=== PATIENT | female | born 1955 | race Caucasian/White ===

== ENCOUNTER 2020-01-30 00:10 | Observation (INO) | payer MEDICARE ==
[2020-01-30] MEDS ORDERED: diltiaZEM INJ 5 MG/ML VIAL IVP STA ×2 (00:32→00:47)
[2020-01-30 00:39] LABS: BASOPHILS % (AUTO) 0.3 %; EOSINOPHILS # (AUTO) 0.3 10^3/uL (0.0-0.7); EOSINOPHILS % (AUTO) 4.5 %; HGB - HEMOGLOBIN 13.3 g/dL (12.0-16.0); LYMPHOCYTES # (AUTO) 3.3 10^3/uL (1.5-3.5); LYMPHOCYTES % (AUTO) 51.5 %; MEAN CORPUSCULAR HEMOGLOBIN 31.4 pg (27.0-31.0); MONOCYTES # (AUTO) 0.5 10^3/uL (0.0-1.0); MONOCYTES % (AUTO) 8.1 %; NEUTROPHILS # (AUTO) 2.3 10^3/uL (1.5-6.6); NEUTROPHILS % (AUTO) 35.3 %; PLT - PLATELET COUNT 170 10^3/uL (130-450); RED BLOOD COUNT 4.24 10^6/uL (4.20-5.40); RED CELL DISTRIBUTION WIDTH 12.4 % (12.0-15.0); WHITE BLOOD COUNT 6.4 x10^3/uL (4.8-10.8)
--- NOTE | 2020-01-30 00:49 | ED Physician Documentation ---
History of Present Illness - Stated complaint Stated Complaint: CP - Chief complaint Chief Complaint: Cardiac - History obtained from History obtained from: Patient - History of Present Illness Timing: Today - Additonal information Additional information: 64 y/o female with a prior history of bronchitis and asthma has developed symptoms of palpitations that are short lived but have become more frequent since an illness in March that her entire team in [place] had. One of the group was eventually diagnosed with COVID and the patient feels that since that time she has had more problems with episodes of palpitations and she has been in to see Lakesha Curry and has had monitoring by AMBERLY. The patient indicates that she has been diagnosed with PACs but she has not been diagnosed with atrial fibrillation. She does not have the results of for ZIO. Today the patient was in [place] sitting up for an art show and she was working fairly hard she was feeling well all [place] [employer] [place] she began to feel the palpitations when she arrived home she continued to feel palpitations and she has now come to the emergency department. In route to the hospital with these palpitations she began to have some chest pressure. This has subsequently resolved.She indicates that she has not otherwise been ill recently. Review of Systems Constitutional: denies: Fever, Myalgias Eyes: denies: Decreased vision Ears: denies: Ear pain Nose: denies: Rhinorrhea / runny nose, Congestion Throat: denies: Sore throat Cardiac: reports: Chest pain / pressure, Palpitations. denies: Pedal edema, Calf pain Respiratory: denies: Dyspnea, Cough, Wheezing GI: denies: Abdominal Pain, Nausea, Vomiting : denies: Dysuria, Frequency PD PAST MEDICAL HISTORY - Allergies Allergies/Adverse Reactions: Allergies Allergy/AdvReac Type Severity Reaction Status Date / Time ibuprofen Allergy Hives Verified 01/30/20 00:42 lidocaine Allergy Hives Verified 01/30/20 00:42 PD ED PE NORMAL - Vitals Vital signs reviewed: Yes (tachy and hypertensive ) - General General: Alert and oriented X 3, No acute distress, Well developed/nourished - HEENT HEENT: Atraumatic, PERRL, EOMI - Neck Neck: Supple, no meningeal sign, No bony TTP - Cardiac Cardiac: No murmur, Other (rapid irregular rate ) - Respiratory Respiratory: No respiratory distress, Clear bilaterally - Abdomen Abdomen: Normal bowel sounds, Soft, Non tender, Non distended, No organomegaly - Back Back: No CVA TTP, No spinal TTP - Derm Derm: Normal color, Warm and dry, No rash - Extremities Extremities: No deformity, No edema - Neuro Neuro: Alert and oriented X 3, assembler gold frame 2-12 intact, No motor deficit, No sensory deficit, Normal speech Eye Opening: Spontaneous Motor: Obeys Commands Verbal: Oriented GCS Score: 15 - Psych Psych: Normal mood, Normal affect Results - Vitals Vitals: Vital Signs - 24 hr 01/30/20 01/30/20 01/30/20 00:13 00:38 00:42 Temperature 36.8 C Heart Rate 107 H 141 H 109 H Respiratory 16 21 21 Rate Blood Pressure 131/77 H 152/104 H 112/79 O2 Saturation 97 99 98 01/30/20 01/30/20 01/30/20 00:45 00:50 00:55 Temperature Heart Rate 102 H 120 H 108 H Respiratory 18 26 H 14 Rate Blood Pressure 136/101 H 136/94 H 107/70 O2 Saturation 98 98 98 01/30/20 01/30/20 01/30/20 01:00 01:10 02:30 Temperature Heart Rate 87 86 72 Respiratory 22 20 16 Rate Blood Pressure 122/83 H 124/76 112/67 O2 Saturation 99 98 98 Oxygen O2 Source Room air - EKG (time done) 00:19 Rate: Rate (enter#) (149) Rhythm: Atrial fibrillation Ischemia: Other (rate related repolarization abnormality) Compare to prior EKG: Old EKG unavailable Computer interpretation: Agree with computer - Labs Labs: Laboratory Tests 01/30/20 01/30/20 01/30/20 00:30 00:30 00:30 WBC 6.4 RBC 4.24 Hgb 13.3 Hct 40.3 MCV 95.0 MCH 31.4 H MCHC 33.0 RDW 12.4 Plt Count 170 MPV 10.0 Neut # (Auto) 2.3 Lymph # (Auto) 3.3 [place] # (Auto) 0.5 Eos # (Auto) 0.3 Baso # (Auto) 0.0 Absolute Nucleated RBC 0.00 Nucleated RBC % 0.0 Sodium 144 Potassium 3.4 L Chloride 107 Carbon Dioxide 29 Anion Gap 8.0 BUN 20 Creatinine 0.9 Estimated GFR (MDRD) 63 L Glucose 102 H Calcium 9.1 Total Bilirubin 0.6 AST 30 ALT 20 Alkaline Phosphatase 71 Troponin I High Sens 10.2 Total Protein 7.6 Albumin 4.1 Globulin 3.5 Albumin/Globulin Ratio 1.2 Lipase 35 01/30/20 01/30/20 02:14 04:50 WBC RBC Hgb Hct MCV MCH MCHC RDW Plt Count MPV Neut # (Auto) Lymph # (Auto) [place] # (Auto) Eos # (Auto) Baso # (Auto) Absolute Nucleated RBC Nucleated RBC % Sodium Potassium Chloride Carbon Dioxide Anion Gap BUN Creatinine Estimated GFR (MDRD) Glucose Calcium Total Bilirubin AST ALT Alkaline Phosphatase Troponin I High Sens 16.2 H* 22.5 H* Total Protein Albumin Globulin Albumin/Globulin Ratio Lipase - Rads (name of study) chest Radiology: Prelim report reviewed (Impression: 1. Central bronchial wall thickening much may reflect bronchitis.), EMP read indepedently, See rad report Procedures - IVC sono (time) 0100 Bedside IVC sono: IVC measures (cm), IVC collapsed c insp (cm) (complete), Dehydration (est 1-2 liter deficit) PD MEDICAL DECISION MAKING - ED course Complexity details: reviewed old records, reviewed results, re-evaluated patient, considered differential, d/w patient ED course: 64-year-old female with intermittent palpitations has had persistence of palpitations this evening and is found to have atrial fibrillation with rapid ventricular response with a ventricular response at about 150. She appears to be tolerating this well and she is administered diltiazem 20 mg intravenously with some improvement in the heart rate she was subsequently administered a second dose 25 mg and this further reduces the patient's heart rate she eventually converts to a normal sinus rhythm and remains in sinus. She is found to have minimally decreased potassium she is administered potassium chloride and 2 g of magnesium. She is found to be mildly dehydrated on interrogation of the inferior vena cava and she is administered a liter of saline as well. I discussed with the patient admission to the hospital for new onset atrial fibrillation and she is invested in going home. This does appear a reasonable disposition as a patient is currently normal on all of her vital signs and appears well. She does have follow-up with a parer regarding this rhythm specifically. We did discuss anticoagulation. I have asked the patient to have this conversation with Dr. Curry on her next visit. We have attempted to get results of the patient's Zio patch. A second trop is comes in at 16.2 just into positive territory but not the delta of 7. A third trop is to be drawn. This is again elevated further but not a delta of 7. Dr. Guzman is consulted in the case and comes to the ED to evaluate the patient for admission for trending the trop and potential stress testing. Departure - Departure Disposition: ED Place in Observation Clinical Impression: Atrial fibrillation with RVR, Dehydration Condition: Stable
[2020-01-30 00:53] LABS: ALBUMIN 4.1 g/dL (3.2-5.5); ALBUMIN/GLOBULIN RATIO 1.2 (1.0-2.2); BILIRUBIN,TOTAL 0.6 mg/dL (0.2-1.0); CALCIUM 9.1 mg/dL (8.5-10.3); CREATININE 0.9 mg/dL (0.4-1.0); TOTAL PROTEIN 7.6 g/dL (6.7-8.2)
[2020-01-30] MEDS ORDERED: POTASSIUM CHLORIDE 20 MEQ TABLET PO STA (01:06)
[2020-01-30] MEDS ORDERED: MAGNESIUM SULFATE 2 GRAM 2 GM/50 ML BAG IV ONE (01:06)
[2020-01-30] MEDS ORDERED: SODIUM CHLORIDE 0.9% 1,000 ML IV STA (02:50)
[2020-01-30] MEDS ORDERED: ACETAMINOPHEN 325 MG TABLET PO STA ×2 (04:54→04:55)
[2020-01-30] MEDS ORDERED: ONDANSETRON 4 MG/2 ML VIAL IVP PRN (06:26)
[2020-01-30] MEDS ORDERED: SODIUM CHLORIDE FLUSH 0.9% 10 ML SYRINGE IVP PRN (06:26)
[2020-01-30] MEDS ORDERED: ACETAMINOPHEN 325 MG TABLET PO PRN (06:26)
--- NOTE | 2020-01-30 06:34 | HISTORY & PHYSICAL EXAMINATION ---
Chief Complaint - Chief Complaint Chief Complaint: Palpitations History of Present Illness - Admitted From Admitted From:: Home - History Obtained From Records Reviewed: Yes History obtained from: Patient, ER Physician, EMR - History of Present Illness HPI Comment/Other: This is a 64-year-old female with a past medical history significant for season al allergies, asthma who presents today after she developed palpitations yesterday evening. She states she went to a pain class after work and on her way home while waiting at the [facility], she developed palpitations. She states she had chest pain about 30 minutes prior to the palpitations. She reports it was a mild ache over the sternum of her chest. It was nonradiating. She did report some left jaw pain but she is not sure if that is associated with chest pain as she does grind her teeth and does have occasional jaw pain. She reports no dyspnea or cough. No denies any fevers or chills. She states she currently has no chest pain or palpitations. She states she does have a history of atrial fibrillation in the past. She believes she has been going in and out of atrial fibrillation since April and she just completed a Zio patch but is awaiting the results of that. She reports being relatively healthy overall. She had flulike symptoms back in February when she was sick for a few days. She believes she may have had COVID-19 at that time as I few of her close friends were all sick at the same time and while I am ended up having COVID-19 reportedly. She reports no history of diabetes. She states she does have a history of low blood pressure at times. She is a non-smoker does not drink alcohol. She does have a family history of coronary artery disease. Her tuber helper is Dr. Lakesha Deutsch at [facility], [place]. In the emergency department, she was found to be in atrial relation with rapid ventricular response. She was given diltiazem IV and she converted to a sinus rhythm. A troponin was checked and this was initially 10.2 and on repeat, it increased to 16.2 and again to 22.5. Given the increase in her troponin, medicine was consulted for admission. History - Past Medical History Cardiovascular: reports: Atrial fibrillation Respiratory: reports: Asthma Neuro: reports: None Endocrine/Autoimmune: reports: None GI: reports: None ANALYTICS ARCHITECT: reports: None : reports: None HEENT: reports: None Psych: reports: None Musculoskeletal: reports: None Derm: reports: None - Family & Social History Family History Comment/Other: She reports one of her brothers was recently diagnosed with coronary artery disease after he had a myocardial infarction that required stenting. Her mother also had heart disease and required a pacemaker for atrial fibrillation. Living arrangement: At home Social History Notes: She works at the [employer]. She has never smoked a nd does not drink alcohol. - POLST Patient has POLST: No Meds/Allgy - Allergies Allergies/Adverse Reactions: Allergies Allergy/AdvReac Type Severity Reaction Status Date / Time ibuprofen Allergy Hives Verified 01/30/20 00:42 lidocaine Allergy Hives Verified 01/30/20 00:42 Review of Systems - Constitutional Constitutional: reports: Fatigue (Chronic). denies: Fever, Chills - Ears, Nose & Throat Ears, Nose & Throat: reports: Nasal congestion. denies: Sore throat - Cardiovascular Cariovascular: reports: Palpitations, Chest pain. denies: Lightheadedness, Syncope, Exertional dyspnea, Decr. exercise tolerance - Respiratory Respiratory: denies: Cough, SOB at rest, SOB with exertion - Gastrointestinal Gastrointestinal: denies: Abdominal pain, Nausea, Vomiting - Genitourinary Genitourinary: denies: Dysuria, Frequency - Neurological Neurological: denies: General weakness, Dizziness - All Other Systems All Other Systems: reports: Reviewed and negative Prior Level of Functionality: She is independent with her ADLs. Exam - Vital Signs Reviewed Vital Signs: Yes Vital Signs: Vital Signs x48h Temp Pulse Resp BP Pulse Ox 01/30/20 05:30 82 18 155/124 H 100 01/30/20 02:30 72 16 112/67 98 01/30/20 01:10 86 20 124/76 98 01/30/20 01:00 87 22 122/83 H 99 01/30/20 00:55 108 H 14 107/70 98 01/30/20 00:50 120 H 26 H 136/94 H 98 01/30/20 00:45 102 H 18 136/101 H 98 01/30/20 00:42 109 H 21 112/79 98 01/30/20 00:38 141 H 21 152/104 H 99 01/30/20 00:13 36.8 C 107 H 16 131/77 H 97 - Physical Exam General Appearance: positive: No acute distress, Alert Eyes Bilateral: positive: Conjunctivae nml ENT: positive: ENT inspection nml Neck: positive: Nml inspection Respiratory: positive: No respiratory distress. negative: Wheezes, Rales Cardiovascular: positive: Regular rate & rhythm, No murmur. negative: Tachycardia, Bradycardia, Systolic murmur Abdomen: positive: Non-tender, No distention. negative: Tenderness, Guarding, Rebound Skin: positive: Warm, Dry Extremities: positive: Full ROM, No pedal edema Neurologic/Psychiatric: positive: Oriented x3, Motor nml. negative: Disoriented to person, Disoriented to place, Disoriented to time Conclusion/Plan - Problem List (1) Paroxysmal atrial fibrillation with rapid ventricular response Conclusion/Plan: She presented with atrial fibrillation with rapid ventricular response and a heart rate in the 150s. She has been converted back to sinus rhythm after receiving diltiazem IV. She would benefit from anticoagulation given her age and gender. We did discuss this which would like to hold off for the time being until she does more research regarding Eliquis and Xarelto. We also discussed the importance of rate control medications such as metoprolol and diltiazem. She would also like to do research regarding these medications before the initiation of them. Fortunately, she is rate controlled at this time. We will check a TSH. Obtain echocardiogram. Monitor on telemetry. (2) Elevated troponin Conclusion/Plan: Suspect this is likely demand ischemia from the atrial fibrillation. She currently does not have any angina. Troponins are mildly elevated but are i ncreasing. At this time, we will continue to trend her troponin and repeat EKG. We discussed the possibility of obtaining a stress test but she would like to hold off for the time being until she speaks with her tuber helper as she is concerned that a physician told her brother in the past that if he had a stress test, he may have potentially during the test due to the severity of his heart disease. (3) Asthma Conclusion/Plan: Stable. Continue with albuterol as needed. - Lab Results Lab results reviewed: Yes Fish Bones: 01/30/20 00:30 01/30/20 00:30 - Diagnostic Imaging Results Diagnostic Imaging Results: positive: Prelim report reviewed - EKG Results EKG Interpreted Independently: Yes EKG Comparison: No prior EKG EKG Findings: Her EKG shows atrial fibrillation with rapid ventricular response. There are mild ST depressions throughout likely related to the rapid rate. Core Measures - Anticipated LOS I expect patient to be DC'd or transferred within 96 hours.: Yes - Issues Hospital Issues and Management Plan: 64-year-old female presents with atrial relation with rapid ventricular response. She is now rate controlled after receiving diltiazem but her troponins are slowly increasing. We will place her in observation for trending of troponins and possible stress test. - DVT/VTE - Prophylaxis VTE/DVT Device ordered at admit?: Yes VTE/DVT Prophylaxis med ordered at admit?: Yes
[2020-01-30 06:42] LABS: BASOPHILS % (AUTO) 0.2 %; EOSINOPHILS # (AUTO) 0.2 10^3/uL (0.0-0.7); EOSINOPHILS % (AUTO) 3.2 %; HGB - HEMOGLOBIN 12.7 g/dL (12.0-16.0); LYMPHOCYTES # (AUTO) 2.3 10^3/uL (1.5-3.5); LYMPHOCYTES % (AUTO) 40.7 %; MEAN CORPUSCULAR HEMOGLOBIN 31.4 pg (27.0-31.0); MEAN CORPUSCULAR HGB CONC 33.2 g/dL (32.0-36.0); MEAN CORPUSCULAR VOLUME 94.8 fL (81.0-99.0); MEAN PLATELET VOLUME 10.4 fL (7.9-10.8); MONOCYTES # (AUTO) 0.6 10^3/uL (0.0-1.0); NEUTROPHILS # (AUTO) 2.6 10^3/uL (1.5-6.6); NEUTROPHILS % (AUTO) 45.7 %; PLT - PLATELET COUNT 164 10^3/uL (130-450); RED BLOOD COUNT 4.04 10^6/uL (4.20-5.40); RED CELL DISTRIBUTION WIDTH 12.5 % (12.0-15.0); WHITE BLOOD COUNT 5.6 x10^3/uL (4.8-10.8)
[2020-01-30 06:52] LABS: CALCIUM 8.8 mg/dL (8.5-10.3); CREATININE 0.9 mg/dL (0.4-1.0); MAGNESIUM 2.5 mg/dL (1.7-2.8); PHOSPHORUS 4.1 mg/dL (2.5-4.6)
[2020-01-30 07:40] LABS: C. PNEUMONIAE- RESP PCR PANEL NOT DETECTED
--- NOTE | 2020-01-30 08:50 | XRAY Report ---
PROCEDURE: Chest 1 View X-Ray INDICATIONS: Chest pain TECHNIQUE: One view of the chest was acquired. COMPARISON: None. FINDINGS: Surgical changes and devices: None. Lungs and pleura: No pleural effusions or pneumothorax. Lungs are clear. Bronchial wall thickening is noted. Mediastinum: Mediastinal contours appear normal. Heart size is normal. Bones and chest wall: No suspicious bony lesions. Overlying soft tissues appear unremarkable. IMPRESSION: 1. No lung consolidation or pleural effusions. 2. Central bronchial wall thickening is nonspecific, but can be related to bronchitis. Reviewed by: Halima Salcido MD, PhD on 01/30/2020 8:49 AM [facility] Approved by: Halima Salcido MD, PhD on 01/30/2020 8:49 AM [facility] Station ID: [id number]
[2020-01-30] MEDS ORDERED: ENOXAPARIN 40 MG/0.4 ML SYRINGE SUBQ SCH (09:00)
[2020-01-30] MEDS ORDERED: SODIUM CHLORIDE FLUSH 0.9% 10 ML SYRINGE IVP SCH (09:00)
--- NOTE | 2020-01-30 09:31 | Discharge Plan ---
Discharge Plan Problem Reviewed?: Yes Disposition: Home, Self Care Condition: Stable Prescriptions: Aspirin [Aspirin EC] 81 mg PO DAILY #30 tablet. diltiaZEM [Cardizem] 30 mg PO DAILY PRN #30 tablet PRN Reason: Tachycardia Methylprednisolone [Medrol Dose Pack] 1 each PO .PACKAGEINSTRUCTIONS 6 Days #1 each Albuterol Sulfate [Proair Hfa Inhaler] 1 - 2 puffs INH Q4H PRN #1 bottle PRN Reason: Shortness Of Air/Wheezing Diet: Regular Activity Restrictions: Activity as Tolerated Shower Restrictions: No Driving Restrictions: No Instruction Topics: Stroke Prevent Live W Atrial Fib Health Concerns: You were in Observation status to evaluate palpitations, that correlated with being in atrial fibrillation, a new heart rhythm for you. Blood test did not show a heart attack or excessive thyroid hormone level, both of which could precipitate this heart rhythm. You are being discharged with new Cardizem 30 mg tablets to take as "Pill in a pocket" treatment of your palpitations (Afib) should it recur. Also, for stroke prevention in patient's who have Afib, one aspirin a day for the rest of your life, is advised presently for you. Take at least a baby aspirin daily, OK to take an adult dose. (The 81 mg dose was prescribed to [facility] but you can buy generic, nlro-oox-qrageax aspirin if you want). You should see your Door Attendant, Dr Deutsch, SOON for hospital follow-up and for further evaluation and management. Resume your other usual medications. The new and refilled prescriptions were electronically sent to your [facility] pharmacy in [place]. Plan of Treatment: As above. Care Goals: Improvement in symptoms and stabilization are the goals. Assessment: The patient understands and is agreeable with the plan. Additional Instructions or Follow Up instructions: If you have new or worsening symptoms, call your PCP or your Door Attendant for advice, or come to the ER. No Smoking: If you smoke, Please STOP! Call for help. Follow-up with: DEMETRICE ALVARADO ARNP [Primary Care Provider] -
[2020-01-30 11:32] VITALS: BP 121/72
--- NOTE | 2020-01-30 12:30 | DISCHARGE SUMMARY ---
Discharge Summary Admit Date: 01/30/20 Discharge Date: 01/30/20 Discharging Provider: Dr Cheri Sheehan Primary Care Provider: Dulce Maria Matute NP, Dr Lakesha Deutsch (Quality Assurance Project Manager) Code Status: Attempt Resuscitation Condition at Discharge: Stable Discharge Disposition: 01 Home, Self Care - HPI History of Present Illness: From [facility] hospital admission H&P of Dr Porfirio Guzman: This is a 64-year-old female with a past medical history significant for seasonal allergies, asthma who presents today after she developed palpitations yesterday evening. She states she went to a pain class after work and on her way home while waiting at the [facility], she developed palpitations. She states she had chest pain about 30 minutes prior to the palpitations. She reports it was a mild ache over the sternum of her chest. It was nonradiating. She did report some left jaw pain but she is not sure if that is associated with chest pain as she does grind her teeth and does have occasional jaw pain. She reports no dyspnea or cough. No denies any fevers or chills. She states she currently has no chest pain or palpitations. She states she does have a history of atrial fibrillation in the past. She believes she has been going in and out of atrial fibrillation since April and she just completed a Zio patch but is awaiting the results of that. She reports being relatively healthy overall. She had flulike symptoms back in February when she was sick for a few days. She bel ieves she may have had COVID-19 at that time as I few of her close friends were all sick at the same time and while I am ended up having COVID-19 reportedly. She reports no history of diabetes. She states she does have a history of low blood pressure at times. She is a non-smoker does not drink alcohol. She does have a family history of coronary artery disease. Her lab tech is Dr. Lakesha Deutsch at [facility]. In the emergency department, she was found to be in atrial relation with rapid ventricular response. She was given diltiazem IV and she converted to a sinus rhythm. A troponin was checked and this was initially 10.2 and on repeat, it increased to 16.2 and again to 22.5. Given the increase in her troponin, medicine was consulted for admission. - HOSPITAL COURSE Hospital Course: (1) Paroxysmal atrial fibrillation with rapid ventricular response She presented with atrial fibrillation with rapid ventricular response and a heart rate in the 150s. She converted back to sinus rhythm after receiving diltiazem IV x1. She had an Echo that was normal. A TSH was normal. Troponin values ruled her out for an acute VT. There were no further episodes of A. fib on telemetry. She was advised to take 1 baby aspirin daily lifelong or as she gets older she may need DOAC. She was advised to have treatment with "pill in a pocket" approach and agreed to this. She was discharged with a new prescription for Cardizem 30 mg daily to take prn, if she gets palpitations/tachycardia. She was advised to see her Quality Assurance Project Manager in follow-up soon. (2) Elevated troponin The hs-troponins were 16, 20, 18. Suspect these were likely demand ischemia from the atrial fibrillation. We discussed the possibility of obtaining a stress test but she would like to hold off for the time being until she speaks with her lab tech as she is concerned that a physician told her brother in the past that if he had a stress test, he may have potentially during the test due to the severity of his heart disease. (3) Asthma Stable. Continue with albuterol as needed. - ALLERGIES Allergies/Adverse Reactions: Allergies Allergy/AdvReac Type Severity Reaction Status Date / Time ibuprofen Allergy Hives Verified 01/30/20 00:42 lidocaine Allergy Hives Verified 01/30/20 00:42 ipratropium [From DuoNeb] AdvReac Respiratory Verified 01/30/20 12:22 - MEDICATIONS Home Medications: Ambulatory Orders Medication Instructions Recorded Confirmed Albuterol Sulfate [Proair Hfa 1 - 2 puffs INH Q4H PRN #1 bottle 01/30/20 Inhaler] Aspirin [Aspirin EC] 81 mg PO DAILY #30 tablet. 01/30/20 Cetirizine HCl [Zyrtec] PRN 01/30/20 Cholecalciferol [Vitamin D3] 1 cap PO DAILY 01/30/20 01/30/20 Methylprednisolone [Medrol Dose 1 each PO .PACKAGEINSTRUCTIONS 6 01/30/20 Pack] Days #1 each Multivitamin 1 tab PO DAILY 01/30/20 01/30/20 diltiaZEM [Cardizem] 30 mg PO DAILY PRN #30 tablet 01/30/20 - PHYSICAL EXAM AT DISCHARGE General Appearance: positive: No acute distress, Alert Eyes Bilateral: positive: Normal inspection, EOMI ENT: positive: ENT inspection nml, No signs of dehydration Neck: positive: Nml inspection, No JVD Respiratory: positive: No respiratory distress Cardiovascular: positive: Regular rate & rhythm, No murmur Abdomen: positive: Non-tender, No distention Skin: positive: Warm, Dry Extremities: positive: Non-tender, No pedal edema Neurologic/Psychiatric: positive: Oriented x3, Motor nml - LABS Result Diagrams: 01/30/20 06:32 01/30/20 06:32 - DIAGNOSTIC IMAGING Diagnostic Imaging Results: Final report reviewed - FOLLOW UP Follow Up: See Quality Assurance Project Manager in next few weeks. - TIME SPENT Time Spent in Discharge (Minutes): 45
== END 2020-01-30 13:25 | disposition home or self-care (01) ==
LOC: ED 00:10 → MS2 06:26
PROVIDERS: ADMIT Internal Medicine; ATTEND Internal Medicine
DX: I48.0 Paroxysmal atrial fibrillation (principal); J45.909 Unspecified asthma, uncomplicated; E86.0 Dehydration; R77.8 Other specified abnormalities of plasma proteins; Z20.828 Contact with and (suspected) exposure to other viral communicable diseases; Z79.51 Long term (current) use of inhaled steroids; Z79.52 Long term (current) use of systemic steroids; Z79.891 Long term (current) use of opiate analgesic; Z82.49 Family history of ischemic heart disease and other diseases of the circulatory system
CPT/HCPCS: 36415; 71045; 80048; 80053; 83690; 83735; 84100; 84443; 84484; 85025; 86769; 87631; 93005; 93306; 96361; 96365; 96375; 99284; 99285; A9270; G0378; 0202U

== ENCOUNTER 2020-07-23 13:04 | Outpatient (CLI) | payer MEDICARE, OTHER ==
--- NOTE | 2020-07-23 18:20 | XRAY Report ---
PROCEDURE: Knee 4 View BILAT INDICATIONS: KNEE PAIN, BILATERAL TECHNIQUE: 3 views of the right and left knee(s) were acquired. COMPARISON: None. FINDINGS: Bones: No fractures or dislocations. No suspicious bony lesions. Moderate osteoarthritic degenerati ve changes noted in the medial compartments of the knees bilaterally including mild joint space narro wing. Mild bilateral patellofemoral compartment osteoarthritis with marginal osteophytosis. Soft tissues: No joint effusion. No suspicious soft tissue calcifications. IMPRESSION: Moderate bilateral medial compartment knee osteoarthritis and mild bilateral patellofemoral compartme nt knee osteoarthritis. No fracture. No acute osseous lesion. If there are persistent symptoms or continued clinical concern for pathology, then advanced imaging (CT, MR, bone scan) should be considered for further evaluation. Reviewed by: Halima Salcido MD, PhD on 07/23/2020 6:19 PM PDT Approved by: Halima Salcido MD, PhD on 07/23/2020 6:19 PM PDT Station ID: [id number]
== END 2020-07-23 23:59 | disposition home or self-care (01) ==
LOC: DI.N 13:04
PROVIDERS: ATTEND Orthopaedic Surgery
DX: M17.0 Bilateral primary osteoarthritis of knee (principal)

== ENCOUNTER 2021-05-16 18:02 | Outpatient (CLI) | payer MEDICARE | END 2021-05-16 18:03 | disposition short-term general hospital (02) | LOC: EMS 18:02 | DX: I48.91 Unspecified atrial fibrillation (principal) | CPT/HCPCS: A0425; A0429 ==

== ENCOUNTER 2022-01-07 13:44 | Outpatient (CLI) | payer MEDICARE ==
[2022-01-07 19:59] LABS: CREATININE 1.2 mg/dL (0.4-1.0)
== END 2022-01-07 13:45 | disposition home or self-care (01) ==
LOC: LAB.S 13:44
PROVIDERS: ATTEND Internal Medicine Cardiovascular Disease
DX: D68.69 Other thrombophilia (principal); I48.20 Chronic atrial fibrillation, unspecified; Z79.01 Long term (current) use of anticoagulants
CPT/HCPCS: 36415; 82565

== ENCOUNTER 2022-02-18 17:01 | Outpatient (CLI) | payer OTHER ==
--- NOTE | 2022-02-19 08:26 | MRI Report ---
PROCEDURE: KNEE WO - LT INDICATIONS: KNEE INSTABILITY TECHNIQUE: Noncontrast sagittal PD fast spin echo and T2 fast spin echo with fat saturation, sagittal 3-D gradie nt sequence with fat saturation; coronal T1 spin echo and PD fast spin echo with fat saturation, and axial PD fast spin echo with fat saturation through the knee. COMPARISON: None. FINDINGS: Image quality: Excellent. Menisci: There is an oblique tear involving the posterior horn and body of the patient's medial menis cus extending to the inferior joint surface. There is also some fraying along the free edge of the dewayne dy of the patient's lateral meniscus. Cruciate ligaments: The anterior and posterior cruciate ligaments appear intact. Medial structures: The medial collateral ligament appears intact. The posterior oblique ligament, s emimembranosus tendon insertions, and oblique popliteal ligament, and meniscocapsular junction appear intact. Visualized portions of the pes anserinus tendons appear normal. No abnormal bursal fluid. Lateral structures: The lateral collateral ligament, long and short heads of the biceps femoris tend on appear intact. The popliteus tendon appears normal; the popliteofibular ligament appears intact. The posterosuperior and anteroinferior popliteomeniscal fascicles appear intact. The arcuate and fa bellofibular ligaments appear intact, around the lateral inferior geniculate artery. Iliotibial band appears normal. Anterior structures: The quadriceps and patellar tendons appear intact. Patellar alignment is moon l. No femoral trochlear dysplasia or ventral trochlear prominence. No edema in the infrapatellar fa t pad. Bones and cartilage: No bone marrow contusions or fractures. There is moderate chondromalacia involv ing the patellofemoral joint and mild chondromalacia involving the articular surfaces of the medial c ompartment. Joint space: There is physiologic knee joint fluid. There is a sctot-he-xinfcjuk sized Leonard's cyst noted with some dependent debris present. IMPRESSION: 1. Oblique tear involving the posterior horn and body of the patient's medial meniscus extending to t he inferior joint surface. 2. Fraying along the free edge of the body of the patient's lateral meniscus. 3. Moderate chondromalacia patellofemoral joint. 4. Mild chondromalacia articular surface of the medial compartment. 5. 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
== END 2022-02-18 17:02 | disposition home or self-care (01) ==
LOC: DI 17:01
PROVIDERS: ATTEND Registered Nurse
DX: S83.242A Other tear of medial meniscus, current injury, left knee, initial encounter (principal); M94.262 Chondromalacia, left knee; M71.22 Synovial cyst of popliteal space [Baker], left knee

== ENCOUNTER 2022-04-01 07:00 | Outpatient (CLI) | payer MEDICARE ==
--- NOTE | 2022-04-01 17:23 | XRAY Report ---
PROCEDURE: Chest 2 View X-Ray INDICATIONS: SUBACUTE COUGH TECHNIQUE: 2 views of the chest were acquired. COMPARISON: 01/30/2020 FINDINGS: Surgical changes and devices: None. Lungs and pleura: No pleural effusions or pneumothorax. Lungs are clear. Mediastinum: Mediastinal contours are normal. Heart size is normal. Bones and chest wall: No suspicious bony abnormalities. Soft tissues appear unremarkable. IMPRESSION: No evidence acute pulmonary process. Reviewed by: Tommie Austin MD on 04/01/2022 5:22 PM PST Approved by: Tommie Austin MD on 04/01/2022 5:22 PM PST Station ID: [id number]
== END 2022-04-01 07:01 | disposition home or self-care (01) ==
LOC: DI.S 07:00
PROVIDERS: ATTEND Physician Assistant Medical
DX: R05.2 Subacute cough (principal); R06.02 Shortness of breath

== ENCOUNTER 2022-06-22 13:27 | Outpatient (CLI) | payer MEDICARE | END 2022-06-22 13:28 | disposition home or self-care (01) | LOC: RT 13:27 | PROVIDERS: ATTEND Nurse Practitioner | DX: J45.909 Unspecified asthma, uncomplicated (principal) | CPT/HCPCS: 94010; 94729 ==

== ENCOUNTER 2022-06-22 13:28 | Outpatient (CLI) | payer MEDICARE | END 2022-06-22 13:29 | disposition home or self-care (01) | LOC: RT 13:28 | PROVIDERS: ATTEND Internal Medicine | DX: I48.0 Paroxysmal atrial fibrillation (principal); J45.909 Unspecified asthma, uncomplicated | CPT/HCPCS: 93005; 94010; 94729 ==

== ENCOUNTER 2022-09-07 08:13 | Outpatient (CLI) | payer MEDICARE | END 2022-09-07 08:14 | disposition home or self-care (01) | LOC: LAB.S 08:13 | PROVIDERS: ATTEND Nurse Practitioner Family | DX: D68.69 Other thrombophilia (principal); I48.20 Chronic atrial fibrillation, unspecified | CPT/HCPCS: 36415; 82565 ==

== ENCOUNTER 2023-05-20 07:32 | Outpatient (CLI) | payer MEDICARE ==
[2023-05-20 15:47] LABS: CHOL/HDL RATIO 3.8 (<4.4); CHOLESTEROL 234 mg/dL; CK- CREATINE KINASE 113 IU/L (30-223); HDL CHOLESTEROL 62 mg/dL; LDL CHOLESTEROL,CALCULATED 152 mg/dL; LDL/HDL RATIO 2.5 (<4.4); MAGNESIUM 2.1 mg/dL (1.7-2.3); TRIGLYCERIDES 101 mg/dL (48-352); VLDL CHOLESTEROL 20 mg/dL
== END 2023-05-20 07:33 | disposition home or self-care (01) ==
LOC: LAB.S 07:32
PROVIDERS: ATTEND Internal Medicine Cardiovascular Disease
DX: R53.83 Other fatigue (principal); Z79.899 Other long term (current) drug therapy
CPT/HCPCS: 36415; 80061; 82306; 82550; 83721; 83735

== ENCOUNTER 2023-05-24 16:41 | Outpatient (CLI) | payer MEDICARE | END 2023-05-24 16:42 | disposition home or self-care (01) | LOC: RT 16:41 | PROVIDERS: ATTEND Internal Medicine Cardiovascular Disease | DX: I48.0 Paroxysmal atrial fibrillation (principal); R00.2 Palpitations | CPT/HCPCS: 93005 ==